=== PATIENT | male | born 1990 | race Caucasian/White ===

== ENCOUNTER 2017-01-03 04:16 | Emergency (ER) | payer OTHER ==
[2017-01-03] MEDS ORDERED: ONDANSETRON HCL INJ/PF 4 MG/2 ML SDV IV ONE (04:29)
[2017-01-03] MEDS ORDERED: NORMAL SALINE 1000 ML 1,000 ML IV ONE (04:29)
[2017-01-03 05:05] LABS: ABSOLUTE EOSINOPHILS # (AUTO) 0.1 10^3/uL (0.0-0.6); ABSOLUTE LYMPHOCYTES (AUTO) 1.2 10^3/uL (0.5-4.7); ABSOLUTE NEUT (AUTO) 14.8 10^3/uL (1.7-8.2); BASOPHILS % (AUTO) 0.2 % (0-2); EOSINOPHILS % (AUTO) 0.4 % (0-6); HEMATOCRIT 51.3 % (37.9-51.0); HEMOGLOBIN 17.3 g/dL (13.5-17.0); HGB HCT DIFFERENCE 0.6; LYMPHOCYTES % (AUTO) 6.9 % (13-45); MEAN CORPUSCULAR HEMOGLOBIN 28.4 pg (27.0-33.4); MEAN CORPUSCULAR HGB CONC 33.7 g/dL (32.0-36.0); MEAN CORPUSCULAR VOLUME 84 fl (80-97); MONOCYTES % (AUTO) 6.1 % (3-13); RED CELL DISTRIBUTION WIDTH 12.6 % (11.5-14.0); SEGMENTED NEUTROPHILS % (AUTO) 86.4 % (42-78); WHITE BLOOD COUNT 17.1 10^3/uL (4.0-10.5)
[2017-01-03 05:26] LABS: BLOOD UREA NITROGEN 21 mg/dL (7-20); CALCIUM 10.7 mg/dL (8.4-10.2); CREATININE RESULT 1.14 mg/dL (0.52-1.25); GLUCOSE 107 mg/dL (75-110)
[2017-01-03 05:27] LABS: ANION GAP 18 (5-19); CARBON DIOXIDE 30 mmol/L (22-30); CHLORIDE 97 mmol/L (98-107); POTASSIUM 4.1 mmol/L (3.6-5.0); SODIUM 145.1 mmol/L (137-145)
--- NOTE | 2017-01-03 05:37 | ER Document Report ---
ED GI/ - General Chief Complaint: Nausea/Vomiting/Diarrhea Stated Complaint: VOMITING Notes: Patient is a 26-year-old male who comes in with nausea vomiting diarrhea. Of note, his is also my patient with similar symptoms. Patient and both ate pizza and then began feeling sick afterwards. with vomiting and diarrhea. Patient initially just with vomiting, diarrhea as well. Patient states that he cannot keep anything down at this time. Nuys abdominal pain. No past medical history. No surgical history. TRAVEL OUTSIDE OF THE [place] IN LAST 30 DAYS: No - HPI Patient complains to provider of: Diarrhea, Vomiting Onset: Other Timing/Duration: Gradual Quality of pain: No pain Context: Bad food Exacerbated by: Food - Related Data Allergies/Adverse Reactions: No Known Allergies Allergy (Unverified 01/03/17 04:20) Past Medical History - General Information source: Patient - Social History Smoking Status: Never Smoker Chew tobacco use (# tins/day): No Frequency of alcohol use: daily 2-3 beers Drug Abuse: None Family History: Reviewed & Not Pertinent Patient has suicidal ideation: No Patient has homicidal ideation: No - Medical History Medical History: Negative Renal/ Medical History: Denies: Hx Peritoneal Dialysis Surgical Hx: Negative Review of Systems - Review of Systems Constitutional: No symptoms reported EENT: No symptoms reported Cardiovascular: No symptoms reported Respiratory: No symptoms reported Gastrointestinal: See HPI Genitourinary: No symptoms reported Male Genitourinary: No symptoms reported Musculoskeletal: No symptoms reported Skin: No symptoms reported Hematologic/Lymphatic: No symptoms reported Neurological/Psychological: No symptoms reported Physical Exam - Vital signs Vitals: Temp Pulse Resp BP Pulse Ox 98.0 F 91 14 137/83 H 100 01/03/17 04:22 01/03/17 04:22 01/03/17 04:22 01/03/17 04:22 01/03/17 04:22 Interpretation: Normal - General General appearance: Appears well, Alert - HEENT Head: Normocephalic, Atraumatic Eyes: Normal Pupils: PERRL Mucous membranes: Dry - Respiratory Respiratory status: No respiratory distress Chest status: Nontender Breath sounds: Normal Chest palpation: Normal - Cardiovascular Rhythm: Regular Heart sounds: Normal auscultation Murmur: No - Abdominal Inspection: Normal Distension: No distension Bowel sounds: Normal Tenderness: Nontender Organomegaly: No organomegaly - Back Back: Normal, Nontender - Extremities General upper extremity: Normal inspection, Nontender, Normal color, Normal ROM , Normal temperature General lower extremity: Normal inspection, Nontender, Normal color, Normal ROM , Normal temperature, Normal weight bearing. No: Re's sign - Neurological Neuro grossly intact: Yes Cognition: Normal Orientation: AAOx4 [place] Coma Scale Eye Opening: Spontaneous [place] Coma Scale Verbal: Oriented [place] Coma Scale Motor: Obeys Commands June Coma Scale Total: 15 Speech: Normal Motor strength normal: LUE, RUE, LLE, RLE Sensory: Normal - Psychological Associated symptoms: Normal affect, Normal mood - Skin Skin Temperature: Warm Skin Moisture: Dry Skin Color: Normal Course - Re-evaluation Re-evalutation: 01/03/17 05:37 Blood work within normal limits. Patient feels better after fluids and Zofran. Tolerating by mouth at this time. 01/03/17 06:40 Patient was feeling better wants to sit in his 's room and have his IV removed. As complaining of nausea again. Zofran ordered. 01/03/17 07:17 Stable for discharge. Feels better. Follow-up with PMD. - Vital Signs Vital signs: Temp Pulse Resp BP Pulse Ox 98.0 F 91 14 137/83 H 100 01/03/17 04:22 01/03/17 04:22 01/03/17 04:22 01/03/17 04:22 01/03/17 04:22 - Laboratory Result Diagrams: 01/03/17 04:40 01/03/17 04:40 Laboratory results interpreted by me: 01/03/17 01/03/17 04:40 04:40 WBC 17.1 H RBC 6.10 H Hgb 17.3 H Hct 51.3 H Seg Neutrophils % 86.4 H Lymphocytes % 6.9 L Absolute Neutrophils 14.8 H Sodium 145.1 H Chloride 97 L BUN 21 H Calcium 10.7 H Discharge - Discharge Clinical Impression: Vomiting Qualifiers: Vomiting type: unspecified Vomiting Intractability: non-intractable Nausea presence: with nausea Qualified Code(s): R11.2 - Nausea with vomiting, unspecified Diarrhea Qualifiers: Diarrhea type: unspecified type Qualified Code(s): R19.7 - Diarrhea, unspecified Condition: Stable Disposition: HOME, SELF-CARE Instructions: Vomiting ([facility]), Diarrhea, Nonspecific ([facility]) Forms: Return to Work
[2017-01-03] MEDS ORDERED: LOPERAMIDE HCL 2 MG CAPSULE PO ONE (05:40)
[2017-01-03] MEDS ORDERED: ONDANSETRON ODT 4 MG TAB (6 TAB/DSPK) PO PRN (06:01)
[2017-01-03 06:14] LABS: APPEARANCE,URINE CLEAR; BILIRUBIN,URINE NEGATIVE (NEGATIVE); GLUCOSE, URINE NEGATIVE (NEGATIVE); KETONES,URINE NEGATIVE (NEGATIVE); LEUKOCYTE ESTERASE,URINE NEGATIVE (NEGATIVE); NITRITE,URINE NEGATIVE (NEGATIVE); PROTEIN,URINE NEGATIVE (NEGATIVE); URINE SPECIFIC GRAVITY 1.025; UROBILINOGEN,URINE NEGATIVE mg/dL (<2.0)
[2017-01-03] MEDS ORDERED: ONDANSETRON 4 MG TAB.RAPDIS PO ONE (06:36)
[2017-01-03 07:32] VITALS: BP 117/74
== END 2017-01-03 07:35 | disposition home or self-care (01) ==
LOC: ER 04:16
DX: R11.2 Nausea with vomiting, unspecified (principal); R19.7 Diarrhea, unspecified
CPT/HCPCS: 99284; 96374; 36415; 85025; 80048; 81001; S0119; J2405; J7030